=== PATIENT | male | born 1945 | race Caucasian/White ===

== ENCOUNTER → 2017-03-25 13:10 | Outpatient (CLI) | payer MEDICARE, OTHER ==
[2016-06-05 07:49] VITALS: BMI 32.9
[~2017-03-25 13:10] MED LIST: ACETAMINOPHEN500 M1 PO; ACTOS45 MG PO; CLONAZEPAM2 MG/TAB; COREG12.5 MG; COZAAR100 MG PO; GLUCOPHAGE1000 MG PO; GLUCOTROL 5 MG T5 MG PO; HYDROCHLOROTHIA25 MG PO; JANUVIA100 MG PO; NEURONTIN800 MG PO; PLAVIX75 MG PO; VIAGRA100 MG PO; ZOCOR80 MG PO
[2017-03-25 15:29] LABS: BASOPHILS 0.4 % (0-2); EOSINOPHILS 7.8 % (0-7); HEMATOCRIT 40.4 % (42.0-54.0); HEMOGLOBIN 14.1 g/dL (13.5-17.5); LYMPHOCYTES 36.9 % (15-50); MCH 32.1 pg (26.0-34.0); MCHC 34.9 g/dL (31.0-37.0); MONOCYTES 10.7 % (2-11); NEUTROPHILS 44.2 % (40-80); PLATELET COUNT 120 10x3/uL (130-400); RBC 4.39 10x6/uL (4.20-6.10); RDW 12.8 % (11.5-14.5); WBC 5.6 10x3/uL (4.8-10.8)
== END | disposition home or self-care (01) ==
LOC: D.RT 13:10
PROVIDERS: Internal Medicine Pulmonary Disease
DX: R06.09 Other forms of dyspnea (principal)

== ENCOUNTER → 2017-03-26 19:37 | Outpatient (CLI) | payer MEDICARE, OTHER ==
[2016-06-05 07:49] VITALS: BMI 32.9
== END | disposition home or self-care (01) ==
LOC: D.SLEEP 19:37
DX: G47.33 Obstructive sleep apnea (adult) (pediatric) (principal)

== ENCOUNTER → 2017-05-12 09:56 | Outpatient (CLI) | payer MEDICARE, OTHER ==
[2016-06-05 07:49] VITALS: BMI 32.9
== END | disposition home or self-care (01) ==
LOC: D.CT 09:56
DX: R94.2 Abnormal results of pulmonary function studies (principal)

== ENCOUNTER → 2017-09-16 08:37 | Outpatient (CLI) | payer MEDICARE, OTHER ==
[2016-06-05 07:49] VITALS: BMI 32.9
== END | disposition home or self-care (01) ==
LOC: D.US 08:37
DX: K76.89 Other specified diseases of liver (principal)

== ENCOUNTER 2018-04-07 14:59 | Inpatient (IN) | payer MEDICARE, OTHER ==
[~2018-04-07] VITALS: Ht 170.2 cm; Wt 90.7 kg
--- NOTE | ~2018-04-07 | HP ---
PATIENT: ANGIE SAMPSON MEDICAL RECORD: [id number] ACCOUNT: [id number] LOCATION:[address] : 43 ADMISSION DATE: 04/07/18 HISTORY AND PHYSICAL EXAMINATION HISTORY OF PRESENT ILLNESS: A 72-year-old gentleman presents to the office today with weakness, some pain in his low back, a little bit of cough. His states for 3 or 4 days, he has had chills and progressive weakness. On presentation to the office today blood pressure was quite low, 70/50. On presentation, pulse 70, respirations 16, temperature 97.9. He was found on workup to show evidence of a left lower lobe infiltrate consistent with pneumonia. He was also hypotensive. We have decided to admit him to the hospital for IV antibiotics, IV fluids and further testing is appropriate. PAST MEDICAL HISTORY: Significant for hypertension, diabetes, hyperlipidemia. He also has a history of BPH. He has been seen before by cardiology, Dr. Becerra for history of coronary artery disease. He has got a history of stents in the past. MEDICATIONS: He has medications at home that include aspirin 81 mg daily, vitamin D 50,000 units weekly, hydrochlorothiazide 25 mg daily, losartan 50 mg daily, metformin 850 mg twice daily, methocarbamol p.r.n., Actos 30 mg daily, pregabalin 75 mg b.i.d., saxagliptin 5 mg daily, simvastatin 80 mg daily. ALLERGIES: HE HAS ALLERGIES TO CRESTOR AND LUNESTA. FAMILY HISTORY: Noncontributory. REVIEW OF SYSTEMS: CONSTITUTIONAL: Denies any fevers, but has had chills and sweats. HEENT: No visual changes or auditory changes. No sore throat, rhinorrhea or dysphagia. CARDIOPULMONARY: Denies any chest pain or palpitations. Has had some cough. Denies any hemoptysis or productive sputum. GASTROINTESTINAL: Decreased appetite with some intermittent nausea, but no abdominal pain or diarrhea. GENITOURINARY: Denies any burning with urination. Has had decreased urine output, but had not been eating or drinking as much. NEUROLOGIC: Has a slight headache. Denies any blurry vision or diplopia. PHYSICAL EXAMINATION: VITAL SIGNS: As above in the HPI. Blood pressure 80/60 on recheck, pulse 72, respirations 16, temperature 97.9. HEENT: Unremarkable. NECK: Supple. No JVD or adenopathy. HEART: Had an S1, S2. No murmurs or rubs. LUNGS: Clear with no rhonchi, rales or wheezing. ABDOMEN: Soft, nontender, nondistended, normoactive bowel sounds. No organomegaly. EXTREMITIES: Had no clubbing, cyanosis, or edema. NEUROLOGICAL: There were no focal deficits. Cranial nerves grossly intact. LABORATORY DATA: His white count on CBC was 10.5, H&H 13 and 38 with platelet count 118 with a left shift. Glucose stick 211 here in the office. Chest x-ray showed left lower lobe infiltrate with some under inflation. HISTORY AND PHYSICAL [id number] ANGIE SAMPSON ASSESSMENT AND PLAN: 1. Pneumonia with weakness and hypotension. We are going to admit him, ribeiro culture. Start him on IV Levaquin. 2. Diabetes. Hold off on metformin and saxagliptin for now. Continue with Actos and a very small sliding scale insulin as needed. 3. Hypertension, currently hypotensive. Hold both hydrochlorothiazide and losartan for now. 4. Hyperlipidemia. Continue with Zocor 80 mg daily and we will continue to follow him clinically. TRANSINT:[id number] Voice Confirmation ID: [id number] DOCUMENT ID: [id number] FLOR AL DO at 0728 CC: [id number] DICTATION DATE: 04/07/18 1516 EVICTION SPECIALIST: 04/07/18 1546 ADM IN [place] [id number] [place] [address]
[2018-04-07] MEDS ORDERED: ACTOS30 MG PO (15:18)
[2018-04-07] MEDS ORDERED: SOMA350 MG (15:18)
[2018-04-07] MEDS ORDERED: MELATONIN 3 MG1 TAB PO (15:19)
[2018-04-07] MEDS ORDERED: MAGNESIUM OXID420 MG PO (15:19)
[2018-04-07] MEDS ORDERED: FISH OIL 1,0001 CA1 PO (15:20)
[2018-04-07] MEDS ORDERED: BAYER CHEWABLE81 MG PO (15:20)
[2018-04-07 15:21] VITALS: BP 107/66; BMI 31.4
[2018-04-07] MEDS ORDERED: LYRICA75 MG PO (15:21)
[2018-04-07 16:22] LABS: BASOPHILS 0.1 % (0-2); EOSINOPHILS 0.1 % (0-7); HEMATOCRIT 37.8 % (42.0-54.0); HEMOGLOBIN 13.5 g/dL (13.5-17.5); IMMATURE GRANULOCYTES 0.2 % (0-5); MCH 32.8 pg (26.0-34.0); MCHC 35.7 g/dL (31.0-37.0); MEAN PLATELET VOLUME 10.8 fL (7.4-10.4); MONOCYTES 14.7 % (2-11); NEUTROPHILS 71.9 % (40-80); PLATELET COUNT 108 10x3/uL (130-400); RBC 4.11 10x6/uL (4.20-6.10); RDW 13.1 % (11.5-14.5); WBC 9.6 10x3/uL (4.8-10.8)
[2018-04-07 16:34] LABS: ALBUMIN 3.5 g/dL (3.4-5.0); ANION GAP 19.8 mmol/L (8-16); BILIRUBIN - TOTAL 0.83 mg/dL (0.2-1.3); CALCIUM 8.4 mg/dL (8.5-10.1); CARBON DIOXIDE 18.9 mmol/L (21.0-32.0); CREATININE - SERUM 1.9 mg/dL (0.6-1.3); POTASSIUM - SERUM 3.7 mmol/L (3.5-5.1); PROTEIN - SERUM 7.8 g/dL (6.4-8.2)
[2018-04-07 20:14] VITALS: BP 118/61
[2018-04-07 23:07] LABS: APPEARANCE CLEAR (CLEAR); BILIRUBIN NEGATIVE (NEGATIVE); COLOR DK YELLOW (YELLOW); GLUCOSE NEGATIVE (NEGATIVE); KETONE NEGATIVE (NEGATIVE); NITRITE NEGATIVE (NEGATIVE); PROTEIN 3+ mg/dL (NEGATIVE); UROBILINOGEN NORMAL (NORMAL)
[2018-04-07 23:08] LABS: BACTERIA FEW /hpf (NONE SEEN); EPITHELIAL CELLS 0-5 /hpf (0-5); RED CELLS - URINE 0-5 /hpf (0-5); WHITE CELLS - URINE 0-5 /hpf (0-5)
[2018-04-08 00:19] VITALS: BP 118/57
[2018-04-08 04:00] VITALS: BP 109/58
[2018-04-08 04:54] LABS: BASOPHILS 0.1 % (0-2); EOSINOPHILS 0.1 % (0-7); HEMATOCRIT 36.2 % (42.0-54.0); IMMATURE GRANULOCYTES 0.4 % (0-5); LYMPHOCYTES 17.7 % (15-50); MCH 32.7 pg (26.0-34.0); MCHC 35.9 g/dL (31.0-37.0); MEAN PLATELET VOLUME 10.9 fL (7.4-10.4); MONOCYTES 16.4 % (2-11); NEUTROPHILS 65.3 % (40-80); PLATELET COUNT 109 10x3/uL (130-400); RBC 3.98 10x6/uL (4.20-6.10); WBC 8.4 10x3/uL (4.8-10.8)
[2018-04-08 05:27] LABS: ALBUMIN 3.1 g/dL (3.4-5.0); ANION GAP 16.4 mmol/L (8-16); BILIRUBIN - TOTAL 0.78 mg/dL (0.2-1.3); CALCIUM 8.4 mg/dL (8.5-10.1); CARBON DIOXIDE 20.9 mmol/L (21.0-32.0); POTASSIUM - SERUM 3.3 mmol/L (3.5-5.1)
[2018-04-08 05:28] LABS: CREATININE - SERUM 1.1 mg/dL (0.6-1.3)
[2018-04-08 07:50] VITALS: BP 108/70
[2018-04-08 08:00] VITALS: BP 122/73
[2018-04-08 10:50] VITALS: BP 110/77
[2018-04-08 13:52] VITALS: Ht 170.2 cm; Wt 90.7 kg
[2018-04-08 15:11] VITALS: BP 117/66
[2018-04-09] VITALS: BP 110/57
[2018-04-09 04:00] VITALS: BP 91/47
[2018-04-09 04:19] LABS: BASOPHILS 0.1 % (0-2); EOSINOPHILS 1.2 % (0-7); HEMATOCRIT 35.5 % (42.0-54.0); HEMOGLOBIN 12.7 g/dL (13.5-17.5); IMMATURE GRANULOCYTES 0.4 % (0-5); LYMPHOCYTES 25.2 % (15-50); MCH 32.5 pg (26.0-34.0); MCHC 35.8 g/dL (31.0-37.0); MCV 90.8 fL (80.0-100.0); MEAN PLATELET VOLUME 10.7 fL (7.4-10.4); MONOCYTES 13.7 % (2-11); NEUTROPHILS 59.4 % (40-80); PLATELET COUNT 121 10x3/uL (130-400); RBC 3.91 10x6/uL (4.20-6.10); RDW 13.1 % (11.5-14.5); WBC 6.7 10x3/uL (4.8-10.8)
[2018-04-09 04:44] LABS: ALBUMIN 2.9 g/dL (3.4-5.0); ALKALINE PHOSPHATASE 47 U/L (46-116); BILIRUBIN - TOTAL 0.65 mg/dL (0.2-1.3); CALCIUM 8.2 mg/dL (8.5-10.1); CARBON DIOXIDE 24.2 mmol/L (21.0-32.0); CHLORIDE - SERUM 97 mmol/L (98-107); CREATININE - SERUM 0.9 mg/dL (0.6-1.3); GLUCOSE 165 mg/dL (74-106); MAGNESIUM - SERUM 1.5 mg/dL (1.8-2.4); PHOSPHOROUS 2.1 mg/dL (2.5-4.9); POTASSIUM - SERUM 3.2 mmol/L (3.5-5.1); PROTEIN - SERUM 8.1 g/dL (6.4-8.2); SODIUM 133 mmol/L (136-145); eGFR NON AFRICAN AMERICAN 88 mL/min (90-120)
[2018-04-09 04:46] LABS: ALT (SGPT) 52 U/L (10-68); CALC OSMOLALITY 271 mosm/kg (275-300); UREA NITROGEN 18 mg/dL (7-18)
[2018-04-09] MEDS ORDERED: K-DUR20 MEQ PO (07:42)
[2018-04-09] MEDS ORDERED: FLORASTOR250 MG PO (07:43)
[2018-04-09] MEDS ORDERED: LEVAQUIN750 MG PO (07:43)
[2018-04-09] MEDS ORDERED: DOXYCYCLINE HY100 M2 PO (07:43)
[2018-04-09 07:46] VITALS: BP 130/77
== END 2018-04-09 10:43 | disposition home or self-care (01) | DRG 194 ==
LOC: D.M2 14:59
PROVIDERS: Family Medicine
DX: J18.9 Pneumonia, unspecified organism (principal); E87.1 Hypo-osmolality and hyponatremia; I10 Essential (primary) hypertension; E11.9 Type 2 diabetes mellitus without complications; E78.5 Hyperlipidemia, unspecified; N40.0 Benign prostatic hyperplasia without lower urinary tract symptoms; I95.9 Hypotension, unspecified; R39.2 Extrarenal uremia

== ENCOUNTER → 2018-08-12 10:39 | Outpatient (CLI) | payer MEDICARE, OTHER ==
[2018-04-08 13:52] VITALS: BMI 31.3
[~2018-08-12 10:39] MED LIST changes: +ACTOS30 MG PO; +BAYER CHEWABLE81 MG PO; +DOXYCYCLINE HY100 M2 PO; +FISH OIL 1,0001 CA1 PO; +FLORASTOR250 MG PO; +K-DUR20 MEQ PO; +LEVAQUIN750 MG PO; +LYRICA75 MG PO; +MAGNESIUM OXID420 MG PO; +MELATONIN 3 MG1 TAB PO; +SOMA350 MG
[2018-08-12 11:56] LABS: CALC OSMOLALITY 263 mosm/kg (275-300); CALCIUM 9.1 mg/dL (8.5-10.1); CARBON DIOXIDE 20.4 mmol/L (21.0-32.0); CHLORIDE - SERUM 100 mmol/L (98-107); CREATININE - SERUM 0.9 mg/dL (0.6-1.3); GLUCOSE 208 mg/dL (74-106); POTASSIUM - SERUM 4.5 mmol/L (3.5-5.1); SODIUM 128 mmol/L (136-145); UREA NITROGEN 15 mg/dL (7-18); eGFR NON AFRICAN AMERICAN 88 mL/min (90-120)
[2018-08-12 11:57] LABS: INR 1.14 (0.85-1.17); PROTIME 14.1 SECONDS (11.6-15.0)
[2018-08-12 12:16] LABS: BASOPHILS 0.3 % (0-2); EOSINOPHILS 2.3 % (0-7); HEMATOCRIT 38.1 % (42.0-54.0); HEMOGLOBIN 13.3 g/dL (13.5-17.5); IMMATURE GRANULOCYTES 0.3 % (0-5); MCH 32.9 pg (26.0-34.0); MCHC 34.9 g/dL (31.0-37.0); MCV 94.3 fL (80.0-100.0); MEAN PLATELET VOLUME 11.2 fL (7.4-10.4); MONOCYTES 10.1 % (2-11); RBC 4.04 10x6/uL (4.20-6.10); RDW 13.7 % (11.5-14.5)
[2018-08-12 12:18] LABS: PLATELET COUNT 94 10x3/uL (130-400)
[2018-08-12 13:15] LABS: PLATELET ESTIMATE DECREASED
== END | disposition home or self-care (01) ==
LOC: D.LAB 10:39
PROVIDERS: Specialist
DX: Z01.812 Encounter for preprocedural laboratory examination (principal); I10 Essential (primary) hypertension; Z51.81 Encounter for therapeutic drug level monitoring; Z79.2 Long term (current) use of antibiotics

== ENCOUNTER → 2018-09-21 16:45 | Outpatient (CLI) | payer MEDICARE, OTHER ==
[2018-04-08 13:52] VITALS: BMI 31.3
== END | disposition home or self-care (01) ==
LOC: D.LAB 16:45
PROVIDERS: Specialist
DX: E11.9 Type 2 diabetes mellitus without complications (principal)

== ENCOUNTER → 2020-03-24 13:00 | Outpatient (CLI) | payer MEDICARE, OTHER ==
[2018-04-08 13:52] VITALS: BMI 31.3
[2020-03-24 13:41] LABS: BASOPHILS 0.2 % (0-2); EOSINOPHILS 1.3 % (0-7); HEMATOCRIT 37.3 % (42.0-54.0); HEMOGLOBIN 12.3 g/dL (13.5-17.5); IMMATURE GRANULOCYTES 0.4 % (0-5); LYMPHOCYTES 42.9 % (15-50); MCH 31.5 pg (26.0-34.0); MCV 95.4 fL (80.0-100.0); MEAN PLATELET VOLUME 10.1 fL (7.4-10.4); MONOCYTES 11.6 % (2-11); NEUTROPHILS 43.6 % (40-80); PLATELET COUNT 88 10x3/uL (130-400); RBC 3.91 10x6/uL (4.20-6.10); RDW 17.4 % (11.5-14.5); WBC 4.5 10x3/uL (4.8-10.8)
[2020-03-24 14:06] LABS: CALC OSMOLALITY 273 mosm/kg (275-300); CALCIUM 8.7 mg/dL (8.5-10.1); CARBON DIOXIDE 19.8 mmol/L (21.0-32.0); CHLORIDE - SERUM 107 mmol/L (98-107); CREATININE - SERUM 0.8 mg/dL (0.6-1.3); GLUCOSE 41 mg/dL (74-106); POTASSIUM - SERUM 4.3 mmol/L (3.5-5.1); SODIUM 138 mmol/L (136-145); UREA NITROGEN 15 mg/dL (7-18); eGFR NON AFRICAN AMERICAN > 90 mL/min (90-120)
[2020-03-24 14:45] LABS: PLATELET ESTIMATE DECREASED
== END | disposition home or self-care (01) ==
LOC: D.LABREF 13:00
PROVIDERS: ATTEND Family Medicine
DX: J18.9 Pneumonia, unspecified organism (principal); I10 Essential (primary) hypertension; E11.42 Type 2 diabetes mellitus with diabetic polyneuropathy